=== PATIENT | female | born 1995 | race Asian ===

== ENCOUNTER 2017-10-16 19:59 | Emergency (ER) | payer OTHER ==
[2017-10-16] MEDS ORDERED: TDAP ADULT 0.5 ML INJ (BOOSTRIX) IM ONE (20:27)
[2017-10-16] MEDS ORDERED: CLINDAMYCIN 150 MG CAP PO ONE (20:28)
[2017-10-16] MEDS ORDERED: SULFAMETHOX/TMP 800/160 MG 1 TAB PO ONE (20:29)
--- NOTE | 2017-10-16 20:33 | EDPHY ---
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 This afternoon she was bit by dog. The dog is with her to others. She was unable to obtain the immunization status of dog but states the dog. Well kept. The dog bit her as she bent down to pet it. The nurse stated that the dog does have a tendency to bite. Patient's immunization status is up-to- date other than her tetanus. She is not immunosuppressed in any way. She is allergic to all penicillins. She went to urgent care and was sent here for discussion of possible rabies shots. REVIEW OF SYSTEMS: Constitutional: No fever, no chills. Eyes: No discharge. ENT: No sore throat. Cardiovascular: No chest pain, no palpitations. Respiratory: No cough, no shortness of breath. Gastrointestinal: No abdominal pain, no vomiting. Genitourinary: No hematuria. Musculoskeletal: No back pain. Skin: No rashes. Dog bite Neurological: No headache. Past Medical/Surgical History: No surgical history Smoking Status: Current some day smoker Physical Exam: General Appearance: Alert and no distress. Eyes: Pupils equal and round no injection. Respiratory: Chest is nontender, lungs are clear to auscultation. Cardiac: regular rate and rhythm. Gastrointestinal: Abdomen is soft and nontender, no masses, bowel sounds normal. Musculoskeletal: Neck is supple and nontender. Extremities have full range of motion and are nontender. Skin: No rashes or ecchymosis and dried blood to the left lateral upper leg. No repairable laceration. Neurovascular intact distally. No foreign body. Constitutional: Initial Vital Signs Temperature (C) 36.8 C 10/16/17 20:00 Heart Rate 81 10/16/17 20:00 Respiratory Rate 16 10/16/17 20:00 Blood Pressure 112/89 H 10/16/17 20:00 O2 Sat (%) 96 10/16/17 20:00 O2 Delivery Mode Room Air Allergies/Adverse Reactions: amoxicillin Allergy (Verified 10/16/17 20:03) cefaclor [From Ceclor] Allergy (Verified 10/16/17 20:03) Penicillins Allergy (Verified 10/16/17 20:03) Home Medications: Medication Instructions Recorded Clindamycin 300 mg PO TID 5 Days #15 cap 10/16/17 Sulfamethox/Tmp 800/160 mg 1 tab PO BID #10 tab 10/16/17 [Bactrim Ds] Medical Decision Making ED Course/Re-evaluation: 21-year-old female here with dog bite to the left upper leg. There is no repairable laceration and no evidence of deep structure involvement. She is allergic to penicillins so will start her on both clindamycin and Bactrim for 5 days. Additionally her tetanus was updated. With regards to giving rabies prophylaxis we discussed that there has not been a case of rabies since the 1960s in [facility] in domestic animals and thus rabies prophylaxis is not indicated at this time. The police were contacted with regards to reporting the dog bite. - Data Points Medications Given: Discontinued Medications Clindamycin (Clindamycin) 300 mg PO EDNOW ONE PRN Reason: Protocol Stop: 10/16/17 20:29 Last Admin: 10/16/17 20:55 Dose: 300 mg Diphtheria/Tetanus/Acell Pertussis (Boostrix) 0.5 ml IM .ONCE ONE Stop: 10/16/17 20:28 Last Admin: 10/16/17 20:55 Dose: 0.5 ml Trimethoprim/Sulfamethoxazole (Bactrim Ds) 1 ea PO EDNOW ONE PRN Reason: Protocol Stop: 10/16/17 20:30 Last Admin: 10/16/17 20:55 Dose: 1 ea Departure - Departure Disposition: Home, Routine, Self-Care Clinical Impression: Dog bite Condition: Good Instructions: Sulfamethoxazole/Trimethoprim (By mouth), Clindamycin (By mouth) , Animal Bite (ED) Additional Instructions: Take both antibiotics clindamycin and Bactrim as instructed for the next 5 days. Return to the ER for any signs of infection or other worrisome symptoms. Referrals: Abdulaziz Mcleod DO [Medical Doctor] - As per Instructions Prescriptions: Clindamycin 300 mg PO TID 5 Days #15 cap Sulfamethox/Tmp 800/160 mg [Bactrim Ds] 1 tab PO BID #10 tab
--- NOTE | 2017-10-16 20:38 | EDPHY ---
General Time Seen by Provider: 10/16/17 20:16 - History Smoking Status: Current some day smoker - Objective Vital Signs: Initial Vital Signs Temperature (C) 98.2 F 10/16/17 20:00 Heart Rate 81 10/16/17 20:00 Respiratory Rate 16 10/16/17 20:00 Blood Pressure 112/89 H 10/16/17 20:00 O2 Sat (%) 96 10/16/17 20:00 O2 Delivery Mode Room Air Allergies/Adverse Reactions: amoxicillin Allergy (Verified 10/16/17 20:03) cefaclor [From Ceclor] Allergy (Verified 10/16/17 20:03) Penicillins Allergy (Verified 10/16/17 20:03) Home Medications: Medication Instructions Recorded NK [No Known Home Meds] 10/16/17 Departure - Departure Referrals: NONE *PRIMARY CARE P,. [Primary Care Provider] - As per Instructions
[2017-10-16 21:47] VITALS: BP 121/78
== END 2017-10-16 21:52 | disposition home or self-care (01) ==
DX: S81.852A Open bite, left lower leg, initial encounter (principal); Z23 Encounter for immunization; W54.0XXA Bitten by dog, initial encounter; Y92.69 Other specified industrial and construction area as the place of occurrence of the external cause; Y99.0 Civilian activity done for income or pay; Y93.89 Activity, other specified; F17.200 Nicotine dependence, unspecified, uncomplicated

== ENCOUNTER 2018-04-23 01:10 | Emergency (ER) | payer OTHER ==
[2018-04-23] MEDS ORDERED: NS 1,000 ML IV ONE (01:23)
[2018-04-23] MEDS ORDERED: ONDANSETRON 4 MG/2 ML VIAL IVP ONE ×2 (01:23→01:51)
[2018-04-23] MEDS ORDERED: HYDROmorphONE/DILAUDID 2 MG/ML INJ IVP ONE ×2 (01:23→01:51)
--- NOTE | 2018-04-23 01:24 | EDPHY ---
H & P Stated Complaint: rlq abd pain sudden Time Seen by Provider: 04/23/18 01:24 HPI/ROS: HPI CHIEF COMPLAINT: Lower abdominal pain. HISTORY OF PRESENT ILLNESS: 22-year-old female, presents emergency room with sudden onset right lower abdominal pain. Patient had intercourse earlier this evening. Without any significant pain. She was getting ready for bed around 12 :30 a.m. And developed sudden-onset right adnexal pain sharp stabbing. Nonradiating. No nausea vomiting no diarrhea, no fever, no vaginal discharge, no urinary symptoms. Denies being . States she has an IUD and does not get menstrual cycles. Main complaint ongoing right adnexal pain. Constant rather severe 12/15. Past Medical History: Denies significant medical history Past Surgical History: Denies significant surgical history Social History: Denies drugs alcohol tobacco. Family History: Noncontributory ROS REVIEW OF SYSTEMS: 10 Systems were reviewed and negative with the exception of the elements mentioned in the history of present illness. Exam Constitutional triage nursing summary reviewed, vital signs reviewed, awake/ alert. Eyes normal conjunctivae and sclera, EOMI, PERRLA. HENT normal inspection, atraumatic, moist mucus membranes, no epistaxis, neck supple/ no meningismus, no raccoon eyes. Respiratory clear to auscultation bilaterally, normal breath sounds, no respiratory distress, no wheezing. Cardiovascular rate normal, regular rhythm, no murmur, no edema, distal pulses normal. Gastrointestinal mild tender palpation right adnexa, no rebound, no guarding, normal bowel sounds, no distension, no pulsatile mass. Genitourinary no CVA tenderness. Musculoskeletal no midline vertebral tenderness, full range of motion, no calf swelling, no tenderness of extremities, no meningismus, good pulses, neurovascularly intact. Skin pink, warm, & dry, no rash, skin atraumatic. Neurologic awake, alert and oriented x 3, AAOx3, moves all 4 extremities equally, motor intact, sensory intact, CN II-XII intact, normal cerebellar, normal vision, normal speech. Psychiatric normal mood/affect. Heme/Lymph/Immune no lymphadenopathy. Differential Diagnosis: Differential diagnosis includes but is not limited to and in no particular order: Bowel obstruction, appendicitis, gallbladder disease, diverticulitis, colitis, enteritis, perforated viscus, gastritis, GERD , esophagitis, urinary tract infection, pyelonephritis, kidney stones Medical Decision Making: Plan for this patient IV establishment IV fluid bolus , IV Dilaudid 0.5 mg for pain control, IV Zofran for nausea, basic blood work, ultrasound pelvis to rule out ovarian cyst or torsion. And re-evaluate. Check test, check urine. Re-evaluation: Pelvis ultrasound called to me by Dr. Vidal. Normal ovaries, no free fluid, no cyst, no rupture, no torsion. IUD in good position. 3:40 a.m. patient re-evaluated abdomen is soft nontender. No adnexal pain, no pelvic pain or abdominal pain on exam. Patient states she has no longer any pain. Her ultrasound was reviewed is unremarkable. Will continue monitor. If she has recurrence of pain may need to proceed with CT scan. However at this time her abdomen is soft nontender she denies any complaints. She is actually requesting to go home. [id number]: Patient is requesting discharge. She denies abdominal pain chest pain or shortness of breath. I did recommend that we observe for further in the emergency room for ongoing abdominal pain however she has declined this and wants to go home she states she feels fine. Given that she has no tenderness on exam, as she was home allowed to go home I did offer CT scan imaging prior to discharge however she declined this. Did explain since she is going home without CT imaging and had right lower abdominal pain that she returns if she has worsening abdominal pain, fever, vomiting she is comfortable this plan. I do think appendicitis is unlikely given that was sudden onset sharp stabbing pain right adnexal region and quickly came on quickly resolved. However return precautions discussed with the patient she understands return emergency room she develops worsening abdominal pain, fever, vomiting. Source: Patient - Personal History LMP (Females 10-55): 22-28 Days Ago Current Tetanus/Diphtheria Vaccine: Yes Current Tetanus Diphtheria and Acellular Pertussis (TDAP): Yes - Medical/Surgical History Hx Asthma: No Hx Chronic Respiratory Disease: No Hx Diabetes: No Hx Cardiac Disease: No Hx Renal Disease: No Hx Cirrhosis: No Hx Alcoholism: No Hx HIV/AIDS: No Hx Splenectomy or Spleen Trauma: No Other PMH: denies - Social History Smoking Status: Current some day smoker Constitutional: Initial Vital Signs Temperature (C) 36.7 C 04/23/18 01:13 Heart Rate 68 04/23/18 01:13 Respiratory Rate 18 04/23/18 01:13 Blood Pressure 124/73 H 04/23/18 01:13 O2 Sat (%) 100 04/23/18 01:13 O2 Delivery Mode Room Air Allergies/Adverse Reactions: amoxicillin Allergy (Verified 10/16/17 20:03) cefaclor [From Ceclor] Allergy (Verified 10/16/17 20:03) Penicillins Allergy (Verified 10/16/17 20:03) Home Medications: Medication Instructions Recorded NK [No Known Home Meds] 04/23/18 Medical Decision Making - Data Points Laboratory Results: Laboratory Results 04/23/18 01:25 04/23/18 01:25 04/23/18 04/23/18 04/23/18 01:25 01:25 01:25 WBC RBC Hgb Hct MCV MCH MCHC RDW Plt Count MPV Neut % (Auto) Lymph % (Auto) [place] % (Auto) Eos % (Auto) Baso % (Auto) Nucleat RBC Rel Count Absolute Neuts (auto) Absolute Lymphs (auto) Absolute Monos (auto) Absolute Eos (auto) Absolute Basos (auto) Absolute Nucleated RBC Immature Gran % Immature Gran # Sodium 137 mEq/L mEq/L (135-145) Potassium 4.4 mEq/L mEq/L (3.5-5.2) Chloride 107 mEq/L mEq/L (97-110) Carbon Dioxide 21 mEq/l L mEq/l (22-31) Anion Gap 9 mEq/L mEq/L (6-14) BUN 12 mg/dL mg/dL (7-23) Creatinine 0.8 mg/dL mg/dL (0.6-1.0) Estimated GFR > 60 Glucose 82 mg/dL mg/dL (70-100) Calcium 9.1 mg/dL mg/dL (8.5-10.4) Total Bilirubin 0.5 mg/dL mg/dL (0.1-1.4) Conjugated Bilirubin 0.3 mg/dL mg/dL (0.0-0.5) Unconjugated Bilirubin 0.2 mg/dL mg/dL (0.0-1.1) AST 21 IU/L IU/L (14-46) ALT 19 IU/L IU/L (9-52) Alkaline Phosphatase 44 IU/L IU/L (38-126) Total Protein 6.7 g/dL g/dL (6.3-8.2) Albumin 4.1 g/dL g/dL (3.5-5.0) Lipase 191 IU/L IU/L (23-300) Beta HCG, Qual NEGATIVE Urine Color YELLOW Urine Appearance MODERATELY TURBID Urine pH 8.0 H (5.0-7.5) Ur Specific [place] 1.017 (1.002-1.030) Urine Protein NEGATIVE (NEGATIVE) Urine Ketones NEGATIVE (NEGATIVE) Urine Blood NEGATIVE (NEGATIVE) Urine Nitrate NEGATIVE (NEGATIVE) Urine Bilirubin NEGATIVE (NEGATIVE) Urine Urobilinogen NEGATIVE EU EU (0.2-1.0) Ur Leukocyte Esterase NEGATIVE (NEGATIVE) Urine Glucose NEGATIVE (NEGATIVE) 04/23/18 01:25 WBC 9.26 10^3/uL 10^3/uL (3.80-9.50) RBC 4.78 10^6/uL 10^6/uL (4.18-5.33) Hgb 14.8 g/dL g/dL (12.6-16.3) Hct 42.9 % % (38.0-47.0) MCV 89.7 fL fL (81.5-99.8) MCH 31.0 pg pg (27.9-34.1) MCHC 34.5 g/dL g/dL (32.4-36.7) RDW 13.3 % % (11.5-15.2) Plt Count 313 10^3/uL 10^3/uL (150-400) MPV 10.0 fL fL (8.7-11.7) Neut % (Auto) 43.3 % % (39.3-74.2) Lymph % (Auto) 44.4 % % (15.0-45.0) [place] % (Auto) 8.2 % % (4.5-13.0) Eos % (Auto) 2.8 % % (0.6-7.6) Baso % (Auto) 1.0 % % (0.3-1.7) Nucleat RBC Rel Count 0.0 % % (0.0-0.2) Absolute Neuts (auto) 4.01 10^3/uL 10^3/uL (1.70-6.50) Absolute Lymphs (auto) 4.11 10^3/uL H 10^3/uL (1.00-3.00) Absolute Monos (auto) 0.76 10^3/uL 10^3/uL (0.30-0.80) Absolute Eos (auto) 0.26 10^3/uL 10^3/uL (0.03-0.40) Absolute Basos (auto) 0.09 10^3/uL 10^3/uL (0.02-0.10) Absolute Nucleated RBC 0.00 10^3/uL 10^3/uL (0-0.01) Immature Gran % 0.3 % % (0.0-1.1) Immature Gran # 0.03 10^3/uL 10^3/uL (0.00-0.10) Sodium Potassium Chloride Carbon Dioxide Anion Gap BUN Creatinine Estimated GFR Glucose Calcium Total Bilirubin Conjugated Bilirubin Unconjugated Bilirubin AST ALT Alkaline Phosphatase Total Protein Albumin Lipase Beta HCG, Qual Urine Color Urine Appearance Urine pH Ur Specific [place] Urine Protein Urine Ketones Urine Blood Urine Nitrate Urine Bilirubin Urine Urobilinogen Ur Leukocyte Esterase Urine Glucose Medications Given: Discontinued Medications Hydromorphone HCl (Dilaudid) 0.5 mg IVP EDNOW ONE Stop: 04/23/18 01:24 Last Admin: 04/23/18 01:38 Dose: 0.5 mg Hydromorphone HCl (Dilaudid) 0.5 mg IVP EDNOW ONE Stop: 04/23/18 01:52 Last Admin: 04/23/18 01:55 Dose: 0.5 mg Sodium Chloride (Ns) 1,000 mls @ 0 mls/hr IV EDNOW ONE; Wide Open PRN Reason: Protocol Stop: 04/23/18 01:24 Last Admin: 04/23/18 01:36 Dose: 1,000 mls Ondansetron HCl (Zofran) 4 mg IVP EDNOW ONE Stop: 04/23/18 01:24 Last Admin: 04/23/18 01:37 Dose: 4 mg Ondansetron HCl (Zofran) 4 mg IVP EDNOW ONE Stop: 04/23/18 01:52 Last Admin: 04/23/18 01:55 Dose: 4 mg Departure - Departure Disposition: Home, Routine, Self-Care Clinical Impression: Abdominal pain Condition: Good Instructions: Acute Abdominal Pain (ED) Additional Instructions: 1. Return emergency room if there is worsening abdominal pain, fever, vomiting. Referrals: NONE *PRIMARY CARE P,. [Primary Care Provider] - As per Instructions
[2018-04-23 01:40] LABS: PLATELET COUNT 313 10^3/uL (150-400)
[2018-04-23] MEDS ORDERED: ONDANSETRON 4 MG/2 ML VIAL ONE (01:49)
[2018-04-23] MEDS ORDERED: HYDROmorphONE/DILAUDID 2 MG/ML INJ ONE (01:49)
[2018-04-23 04:45] VITALS: BP 105/63
== END 2018-04-23 04:25 | disposition home or self-care (01) ==
DX: R10.31 Right lower quadrant pain (principal); E86.9 Volume depletion, unspecified; F17.200 Nicotine dependence, unspecified, uncomplicated
CPT/HCPCS: 96374; J1170; J2405